=== PATIENT | female | born 1990 | race Caucasian/White ===

== ENCOUNTER → 2018-12-27 | Outpatient (CLI) | payer OTHER ==
--- NOTE | 2018-12-27 10:32 | RADIOLOGY REPORT (SQ) ---
EXAM DESCRIPTION: VENOUS UNILATERAL LOWER COMPLETED DATE/TIME: 12/27/2018 10:19 am REASON FOR STUDY: RLE PAIN M79.606 PAIN IN LEG, UNSPECIFIED COMPARISON: None. TECHNIQUE: Dynamic and static jiang scale and color images acquired of the right leg venous system. S elected spectral images acquired with additional compression and augmentation maneuvers. The contrala teral common femoral vein and saphenofemoral junction were also imaged. Images stored on PACS. LIMITATIONS: None. FINDINGS: COMMON FEMORAL: Normal phasicity, compression and augmentation. No visualized echogenic ma terial on jiang scale. No defects on color images. FEMORAL: Normal compression and augmentation. No visualized echogenic material on jiang scale. No defe cts on color images. POPLITEAL: Normal compression, augmentation. No visualized echogenic material on jiang scale. No defec ts on color images. CALF VESSELS: Normal compression, augmentation. No visualized echogenic material on jiang scale. No de fects on color images. GSV and SSV: Normal compression, augmentation. No visualized echogenic material on jiang scale. No def ects on color images. ANY DEEP VENOUS INSUFFICIENCY: Not evaluated. ANY EVIDENCE OF POPLITEAL CYST: No. OTHER: No other significant finding. CONTRALATERAL COMMON FEMORAL VEIN AND SAPHENOFEMORAL JUNCTION: Normal phasicity, compression and augmentation. No visualized echogenic material on jiang scale. No de fects on color images. IMPRESSION: NO EVIDENCE DVT OR SVT IN THE RIGHT LEG. TECHNICAL DOCUMENTATION: JOB ID: [id number] [employer]- All Rights Reserved Reading location - IP/workstation name: [email or web address]
== END ==
LOC: SP 09:47
PROVIDERS: ATTEND Obstetrics & Gynecology
DX: O99.89 Other specified diseases and conditions complicating pregnancy, childbirth and the puerperium (principal); M79.604 Pain in right leg; Z3A.18 18 weeks gestation of pregnancy
CPT/HCPCS: 93971

== ENCOUNTER 2019-04-06 20:18 | Outpatient (CLI) | payer OTHER ==
[2019-04-06 21:19] LABS: URINE AMPHETAMINES SCREEN NEGATIVE; URINE BARBITURATES SCREEN NEGATIVE; URINE BENZODIAZEPINES SCREEN NEGATIVE; URINE COCAINE SCREEN NEGATIVE; URINE MARIJUANA (THC) SCREEN NEGATIVE; URINE METHADONE SCREEN NEGATIVE; URINE PHENCYCLIDINE SCREEN NEGATIVE
[2019-04-06 21:25] LABS: APPEARANCE,URINE SLIGHTLY-CLOUDY; BILIRUBIN,URINE NEGATIVE (NEGATIVE); COLOR,URINE YELLOW; GLUCOSE, URINE NEGATIVE (NEGATIVE); KETONES,URINE NEGATIVE (NEGATIVE); LEUKOCYTE ESTERASE,URINE SMALL (NEGATIVE); NITRITE,URINE NEGATIVE (NEGATIVE); PROTEIN,URINE NEGATIVE (NEGATIVE); URINE SPECIFIC GRAVITY 1.013; UROBILINOGEN,URINE NEGATIVE mg/dL (<2.0)
--- NOTE | 2019-04-06 22:33 | Non Stress Test Report ---
Non Stress Test Datetime Report Generated by CPN: 04/06/2019 22:33 DEMOGRAPHIC EGA NST: 32.2 INDICATION Indication for Study: Ordered by Provider; Other Indication for Study (NST) Other: LC URINE RESULTS Urine Protein, NST: Negative Urine Ketones - NST: Negative Urine Glucose - NST: Negative Urine Blood - NST: Negative MONITORING Monitor Explained: Monitor Explained; Test Explained; Patient Verbalized Understanding Time on Monitor: 04/06/2019 20:44 Time off Monitor: 04/06/2019 22:04 NST Duration: 80 NST INTERVENTIONS NST Interventions: PO Hydration Physician Notified NST: Dr. Jeronimo BABY A: [id number] BABY A Movement : Present Contraction Frequency : x1 FHR Baseline : 125 Accelerations : 15X15 Decelerations : None Variability : Moderate 6-25bpm NST Review: Meets Criteria for Reactive NST NST Review and Verified By : Cookie Griffith RN Results: Reactive NST REPORT Report Trigger: Send Report
== END 2019-04-06 22:20 | disposition home or self-care (01) ==
LOC: LC 20:18
PROVIDERS: ATTEND Obstetrics & Gynecology Gynecology
PROC: 4A1HXCZ Monitoring of Products of Conception, Cardiac Rate, External Approach (ICD-10-PCS; principal; 2019-04-06)
DX: O47.03 False labor before 37 completed weeks of gestation, third trimester (principal); Z3A.32 32 weeks gestation of pregnancy
CPT/HCPCS: 59025; 80307; 81001

== ENCOUNTER 2019-04-18 07:45 | Inpatient (IN) | payer OTHER ==
[2019-05-22 13:52] LABS: APPEARANCE,URINE CLOUDY; BILIRUBIN,URINE NEGATIVE (NEGATIVE); COLOR,URINE YELLOW; GLUCOSE, URINE 150 mg/dL (NEGATIVE); KETONES,URINE NEGATIVE (NEGATIVE); LEUKOCYTE ESTERASE,URINE LARGE (NEGATIVE); NITRITE,URINE NEGATIVE (NEGATIVE); PROTEIN,URINE NEGATIVE (NEGATIVE); URINE SPECIFIC GRAVITY 1.012; UROBILINOGEN,URINE NEGATIVE mg/dL (<2.0)
[2019-05-22 14:11] LABS: URINE AMPHETAMINES SCREEN NEGATIVE; URINE BARBITURATES SCREEN NEGATIVE; URINE BENZODIAZEPINES SCREEN NEGATIVE; URINE COCAINE SCREEN NEGATIVE; URINE MARIJUANA (THC) SCREEN NEGATIVE; URINE METHADONE SCREEN NEGATIVE; URINE PHENCYCLIDINE SCREEN NEGATIVE
[2019-05-22 14:52] LABS: ABSOLUTE EOSINOPHILS # (AUTO) 0.5 10^3/uL (0.0-0.6); ABSOLUTE LYMPHOCYTES (AUTO) 1.9 10^3/uL (0.5-4.7); ABSOLUTE MONOCYTES (AUTO) 0.6 10^3/uL (0.1-1.4); ABSOLUTE NEUT (AUTO) 8.1 10^3/uL (1.7-8.2); BASOPHILS % (AUTO) 0.2 % (0-2); EOSINOPHILS % (AUTO) 4.4 % (0-6); HEMATOCRIT 31.7 % (36.0-47.0); HEMOGLOBIN 10.8 g/dL (12.0-15.5); LYMPHOCYTES % (AUTO) 16.9 % (13-45); MEAN CORPUSCULAR HEMOGLOBIN 30.1 pg (27.0-33.4); MEAN CORPUSCULAR HGB CONC 34.2 g/dL (32.0-36.0); MEAN CORPUSCULAR VOLUME 88 fl (80-97); MONOCYTES % (AUTO) 5.4 % (3-13); PLATELET COUNT 170 10^3/uL (150-450); RED CELL DISTRIBUTION WIDTH 15.6 % (11.5-14.0); SEGMENTED NEUTROPHILS % (AUTO) 73.1 % (42-78); TOTAL CELLS COUNTED % (AUTO) 100 %
[2019-05-23] MEDS ORDERED: LIDOCAINE 0.5% INJ-PF (5 MG/ML) 50 ML SDV SUBCUT PRN (05:00)
[2019-05-23] MEDS ORDERED: RINGERS SOLUTION,LACTATED 1,500 ML IV PRN (05:00)
[2019-05-23] MEDS ORDERED: CEFAZOLIN 1 GM/D5W RTU 1 GM/50 ML RTUPB IV PRN (05:00)
[2019-05-23] MEDS: LACTATED RINGERS 1000 ML IV PRN ×3 (05:30→17:24)
[2019-05-23] MEDS ORDERED: KETOROLAC TROMETHAMINE INJ/PF 30 MG/1 ML SDV ONE ×2 (07:07→12:50)
[2019-05-23] MEDS ORDERED: EPHEDRINE SULFATE INJ 50 MG/1 ML AMPULE ONE (07:07)
[2019-05-23] MEDS ORDERED: OXYTOCIN 10 UNIT/ML VIAL ONE (07:07)
[2019-05-23] MEDS ORDERED: MIDAZOLAM 2 MG/2 ML INJ ONE (07:07)
[2019-05-23] MEDS ORDERED: FENTANYL CITRATE INJ/PF 100 MCG/2 ML AMPUL ONE (07:07)
[2019-05-23] MEDS ORDERED: ONDANSETRON HCL INJ/PF 4 MG/2 ML SDV ONE ×2 (07:08→10:28)
[2019-05-23] MEDS ORDERED: ACETAMINOPHEN 1,000 MG/100 ML RTUPB IV ONE (07:08)
[2019-05-23] MEDS ORDERED: OXYTOCIN/NORMAL SALINE 20 UNIT/1,000 ML RTUINJ ONE (07:08)
[2019-05-23] MEDS ORDERED: DIPH/PERTUSS(ACELL)/TETANUS VAC/PF 0.5 ML SYR (>=10YO) IM PRN (08:06)
[2019-05-23] MEDS ORDERED: OXYTOCIN/NORMAL SALINE 20 UNIT/1,000 ML RTUINJ IV PRN (08:06)
[2019-05-23] MEDS ORDERED: ACETAMINOPHEN 1,000 MG/100 ML RTUPB IV PRN (08:06)
[2019-05-23] MEDS ORDERED: MEASLES,MUMPS&RUBELLA VACC/PF 0.5 ML VIAL SUBCUT PRN (08:06)
[2019-05-23] MEDS ORDERED: MORPHINE SULFATE 10 MG/ML INJ IM PRN (08:06)
[2019-05-23] MEDS ORDERED: PROMETHAZINE HCL INJ 25 MG/1 ML VIAL IV PRN ×3 (08:06→08:13)
--- NOTE | 2019-05-23 08:09 | PDOC DELIVERY SUMMARY ---
Delivery Summary - Maternal Hx : III Hx # Term Pregnancies: 1 Hx Total # of Abortions (Sponateous & Elective): 1 STEWART: 05/30/19 Gestational Age: 39weeks Risk Factors: Other Ruptured Membranes: AROM Fluids: Clear - Delivery Labor: Not In Labor Presentation: Vertex Heart Rate Monitoring: Done Pre-Operatively Uterine Contraction Monitoring: External : Scheduled Placenta: Within Normal Limits Number of Vessels (Cord): 3
[2019-05-23] MEDS ORDERED: OXYCODONE-ACETAMINOPHEN 5-325 MG TABLET PO PRN ×2 (08:13)
[2019-05-23] MEDS ORDERED: FENTANYL CITRATE INJ/PF 100 MCG/2 ML AMPUL IV PRN ×3 (08:13)
[2019-05-23] MEDS ORDERED: DIPHENHYDRAMINE HCL 50 MG/ML VIAL IV PRN (08:13)
[2019-05-23] MEDS ORDERED: MEPERIDINE HCL/PF INJ 25 MG/1 ML DISP.SYRIN IV PRN (08:13)
[2019-05-23] MEDS ORDERED: ONDANSETRON HCL INJ/PF 4 MG/2 ML SDV IV PRN (08:13)
[2019-05-23] MEDS ORDERED: NALBUPHINE HCL INJ 10 MG/1 ML AMPULE ONE (08:20)
[2019-05-23] MEDS ORDERED: DEXAMETHASONE SOD PHOSPHATE INJ 4 MG/1 ML VIAL ONE (10:28)
[2019-05-23] MEDS ORDERED: METOCLOPRAMIDE HCL INJ/PF 10 MG/2 ML SDV ONE (10:28)
[2019-05-23] MEDS ORDERED: PHENYLEPHRINE HCL INJ/PF 10 MG/1 ML SDV ONE (10:28)
[2019-05-23] MEDS: ACETAMINOPHEN 325 MG TABLET PO PRN ×2 (11:19→17:22)
[2019-05-23] MEDS: PRENATAL VITAMIN W DHA CAPSULE PO SCH (11:20)
[2019-05-23] MEDS: DOCUSATE SODIUM 100 MG CAPSULE PO SCH ×2 (11:20→17:22)
[2019-05-23 12:47] LABS: HEMATOCRIT 28.1 % (36.0-47.0); HEMOGLOBIN 9.6 g/dL (12.0-15.5); MEAN CORPUSCULAR HEMOGLOBIN 29.8 pg (27.0-33.4); MEAN CORPUSCULAR HGB CONC 34.3 g/dL (32.0-36.0); MEAN CORPUSCULAR VOLUME 87 fl (80-97); PLATELET COUNT 141 10^3/uL (150-450); RED BLOOD COUNT 3.23 10^6/uL (3.72-5.28); RED CELL DISTRIBUTION WIDTH 15.2 % (11.5-14.0); WHITE BLOOD COUNT 18.9 10^3/uL (4.0-10.5)
[2019-05-23] MEDS: KETOROLAC TROMETHAMINE INJ/PF 30 MG/1 ML SDV IV SCH ×2 (13:03→19:40)
[2019-05-23] MEDS: OXYCODONE-ACETAMINOPHEN 5-325 MG TABLET PO PRN (22:51)
[2019-05-24] MEDS: OXYCODONE-ACETAMINOPHEN 5-325 MG TABLET PO PRN ×3 (05:22→20:09)
[2019-05-24 07:44] LABS: HEMATOCRIT 23.2 % (36.0-47.0); MEAN CORPUSCULAR HEMOGLOBIN 29.8 pg (27.0-33.4); MEAN CORPUSCULAR HGB CONC 33.6 g/dL (32.0-36.0); MEAN CORPUSCULAR VOLUME 89 fl (80-97); PLATELET COUNT 144 10^3/uL (150-450); RED BLOOD COUNT 2.63 10^6/uL (3.72-5.28); RED CELL DISTRIBUTION WIDTH 15.7 % (11.5-14.0); WHITE BLOOD COUNT 13.4 10^3/uL (4.0-10.5)
[2019-05-24 07:53] LABS: HEMOGLOBIN 7.8 g/dL (12.0-15.5)
[2019-05-24] MEDS: DOCUSATE SODIUM 100 MG CAPSULE PO SCH ×2 (09:57→17:39)
[2019-05-24] MEDS: PRENATAL VITAMIN W DHA CAPSULE PO SCH (09:57)
--- NOTE | 2019-05-24 10:52 | PDOC PROGRESS REPORT ---
Subjective-OB Progress Note for:: 05/24/19 Subjective: Pt doing well, resting. She denies significant pain but is appropriately sore. She reports regular diet, voiding without difficulty and is ambulatory. Physical Exam (OB) Vital Signs: Temp Pulse Resp BP Pulse Ox 98.5 F 93 16 99/52 L 98 05/24/19 07:23 05/24/19 07:23 05/24/19 07:23 05/24/19 07:23 05/24/19 07:23 Intake & Output 05/23/19 05/24/19 05/25/19 06:59 06:59 06:59 Intake Total 2500 1000 Output Total 2700 Balance -200 1000 Weight 69.037 kg - Dressing Removed: Yes Incision: Open, Well Approximated - Lochia Lochia Amount: Scant < 10 ml Lochia Color: Serosa/Brown - Abdomen Description: Soft Hernia Present: No Fundal Description: Firm, Midline Fundal Height: u/u - u/2 Objective-Diagnostic Laboratory: 05/24/19 07:23 05/23/19 05/24/19 12:20 07:23 WBC 18.9 H 13.4 H RBC 3.23 L 2.63 L Hgb 9.6 L 7.8 L Hct 28.1 L 23.2 L MCV 87 89 MCH 29.8 29.8 MCHC 34.3 33.6 RDW 15.2 H 15.7 H Plt Count 141 L 144 L Assessment and Plan(PN) - Assessment and Plan (1) Normal course Is this a current diagnosis for this admission?: Yes (2) Anemia due to acute blood loss Is this a current diagnosis for this admission?: Yes (3) delivery delivered Is this a current diagnosis for this admission?: Yes - Time Spent with Patient Time with patient: Less than 15 minutes Medications reviewed and adjusted accordingly: Yes - Disposition Anticipated Discharge: Home Within: within 24 hours
[2019-05-24] MEDS: IBUPROFEN 800 MG TABLET PO SCH ×2 (11:52→17:34)
[2019-05-24] MEDS: SIMETHICONE 80 MG TAB.CHEW PO PRN ×2 (12:05→17:44)
--- NOTE | 2019-05-24 15:54 | PDOC PROGRESS REPORT ---
Subjective-OB Progress Note for:: 05/24/19 Subjective: Called to evaluate patient for shortness of breath after a near syncopal episode while standing in the nursery. Pt back in bed now and reports feeling like its harder to breath due to tight wheezing feeling in center of chest. She reports new symptom of coughing as of the last hour. She doesn't appear to be in distress. Physical Exam (OB) Vital Signs: Temp Pulse Resp BP Pulse Ox 98.2 F 96 16 101/56 L 98 05/24/19 14:59 05/24/19 14:59 05/24/19 14:59 05/24/19 14:59 05/24/19 14:59 Intake & Output 05/23/19 05/24/19 05/25/19 06:59 06:59 06:59 Intake Total 2500 1000 Output Total 2700 Balance -200 1000 Weight 69.037 kg - PIH/Pre-Eclampsia Headache: Absent Epigastric Pain: No Visual Changes: No - Dressing Removed: Yes Incision: Open, Well Approximated - Abdomen Description: Soft Hernia Present: No Fundal Description: Firm, Midline Fundal Height: u/u - u/2 - Respiratory Chest Status: Other - Needs pain medication to encourage Incentive spirometer use, cough and deep breathing. Breath sounds: Productive cough, Other Chest Palpation: Normal Respiratory Notes: Expiratory wheezes slight and inconsistent in bronchial area, no wheezing auscultated in lung shipley. Decreased breath sounds in LLL, no crackles or rales. - Neurological Orientation: AAOx4 - Skin Skin Temperature: Warm Skin Moisture: Dry Skin Color: Normal, [place] Objective-Diagnostic Laboratory: 05/24/19 07:23 05/24/19 07:23 WBC 13.4 H RBC 2.63 L Hgb 7.8 L Hct 23.2 L MCV 89 MCH 29.8 MCHC 33.6 RDW 15.7 H Plt Count 144 L 05/22/19 12:10 Clean Catch Midstream Urine Culture - Final Mixed Urogenital Azucena Assessment and Plan(PN) - Assessment and Plan (1) Normal course Is this a current diagnosis for this admission?: Yes (2) Anemia due to acute blood loss Is this a current diagnosis for this admission?: Yes (3) delivery delivered Is this a current diagnosis for this admission?: Yes Plan:: Discussed with Dr. Dunn, ordered CXR, EKG, and Moon, hospitalist consult placed. - Time Spent with Patient Medications reviewed and adjusted accordingly: Yes - Disposition Anticipated Discharge: Home Within: within 24 hours
[2019-05-24] MEDS: IPRATROPIUM/ALBUTEROL 0.5-2.5 MG/3 ML AMPUL NEB PRN ×2 (16:08→20:49)
--- NOTE | 2019-05-24 16:18 | RADIOLOGY REPORT (SQ) ---
EXAM DESCRIPTION: CHEST 2 VIEWS COMPLETED DATE/TIME: 05/24/2019 3:57 pm REASON FOR STUDY: shortness of breath COMPARISON: None. EXAM PARAMETERS: NUMBER OF VIEWS: two views TECHNIQUE: Digital Frontal and Lateral radiographic views of the chest acquired. RADIATION DOSE: NA LIMITATIONS: none FINDINGS: There is free intraperitoneal air under the right hemidiaphragm. This report was called sera LARA, 1600 hours 05/24/2019. Patient had a section yesterday. LUNGS AND PLEURA: No opacities, masses or pneumothorax. No pleural effusion. MEDIASTINUM AND HILAR STRUCTURES: No masses or contour abnormalities. HEART AND VASCULAR STRUCTURES: Heart normal size. No evidence for failure. BONES: No acute findings. HARDWARE: None in the chest. OTHER: No other significant finding. IMPRESSION: Post section subdiaphragmatic free air right-side No focal infiltrates. No pleural effusions. No pneumothorax. TECHNICAL DOCUMENTATION: JOB ID: [id number] [employer]- All Rights Reserved Reading location - IP/workstation name: [email or web address]
--- NOTE | 2019-05-24 16:37 | PDOC CONSULTATION ---
Consultation Consult Date: 05/24/19 Provider Consulted: JORJE RG History of Present Illness Admission Date/PCP: 05/23/19 05:02 JOSE HIGH MD Patient complains of: lightheadedness, SOB History of Present Illness: BILLY VILLARREAL is a 29 year old female no significant PMH who was admitted for a repeat CS. She is POD 1. She was apparently doing well until this morning when she started having lightheadedness and SOB. Patient says that she was feeling fine but wnet to the nursery this AM, felt dizzy and gradually short of breath. She denies chest pain. She is saturating at a 100% on room air. She was reported to have bilateral wheezes and was given a breathing treatment. Upon encounter, she has already completed the treatment and has clear breath sounds. She says it did gave her some relief. She denies a history of asthma. She does not smoke. Past Medical History Cardiac Medical History: Denies: Hypertension, Heart Murmur Malignancy Medical History: Denies: Breast Cancer, Cervical Cancer, Ovarian Cancer GI Medical History: Reports: Gastroesophageal Reflux Disease - with Denies: Hiatal Hernia Psychiatric Medical History: Reports: Depression - POST-, ANXIETY, OCD Denies: Bipolar Disorder, Post Traumatic Stress Disorder Hematology: Reports: Anemia - with Denies: Hemophilia, Sickle Cell Disease Infectious Medical History: Denies: HIV Social History Smoking Status: Former Smoker - Advance Directive Resuscitation Status: Full Code Family History Parental Family History Reviewed: Yes - no premature CAD Children Family History Reviewed: No Sibling(s) Family History Reviewed.: No Medication/Allergy Home Medications: Fluoxetine HCl [Prozac 20 mg Capsule] 20 mg PO DAILY 04/06/19 Iron 1 tab PO DAILY 05/21/19 95/Iron Fum/Folic/Dha [ + Dha Combo Pack] 1 each PO DAILY 05/21/19 Ranitidine HCl [Zantac] 1 tab PO DAILY 05/21/19 Ibuprofen [Motrin 800 mg Tablet] 800 mg PO Q8HP PRN #60 tablet 05/24/19 Oxycodone HCl/Acetaminophen [Percocet 5-325 mg Tablet] 1 tab PO Q4HP PRN #30 tablet 05/24/19 Allergies/Adverse Reactions: Sulfa (Sulfonamide Antibiotics) Allergy (Verified 05/22/19 11:57) Review of Systems All systems: reviewed and no additional remarkable complaints except as stated - as mentioned in HPI Physical Exam Vital Signs: Temp Pulse Resp BP Pulse Ox 98.2 F 95 14 101/56 L 98 05/24/19 14:59 05/24/19 16:10 05/24/19 16:10 05/24/19 14:59 05/24/19 16:10 Intake & Output 05/23/19 05/24/19 05/25/19 06:59 06:59 06:59 Intake Total 2500 1000 Output Total 2700 Balance -200 1000 Weight 152 lb 3.2 oz General appearance: PRESENT: no acute distress, well-developed, well-nourished Head exam: PRESENT: atraumatic, normocephalic Eye exam: PRESENT: conjunctiva pink, EOMI, PERRLA. ABSENT: scleral icterus Ear exam: PRESENT: normal external ear exam Mouth exam: PRESENT: moist, tongue midline Neck exam: ABSENT: carotid bruit, JVD, lymphadenopathy, thyromegaly Respiratory exam: PRESENT: clear to auscultation josef. ABSENT: rales, rhonchi, wheezes Cardiovascular exam: PRESENT: RRR. ABSENT: diastolic murmur, rubs, systolic murmur Pulses: PRESENT: normal dorsalis pedis pul GI/Abdominal exam: PRESENT: normal bowel sounds, soft. ABSENT: distended, guarding, mass, organolmegaly, rebound, tenderness Rectal exam: PRESENT: deferred Extremities exam: PRESENT: full ROM. ABSENT: calf tenderness, clubbing, pedal edema Neurological exam: PRESENT: alert, awake, oriented to person, oriented to place, oriented to time, oriented to situation, CN II-XII grossly intact. ABSENT: motor sensory deficit Results Laboratory Results: 05/24/19 07:23 05/24/19 07:23 WBC 13.4 H RBC 2.63 L Hgb 7.8 L Hct 23.2 L MCV 89 MCH 29.8 MCHC 33.6 RDW 15.7 H Plt Count 144 L 05/22/19 12:10 Clean Catch Midstream Urine Culture - Final Mixed Urogenital Azucena Impressions: Chest X-Ray 05/24/19 00:00 IMPRESSION: Post section subdiaphragmatic free air right-side No focal infiltrates. No pleural effusions. No pneumothorax. Assessment and Plan - Diagnosis (1) Shortness of breath Is this a current diagnosis for this admission?: Yes Plan: She is saturating at a 100% on room air. EKG is normal. CXR shows a right sided pneumoperitoneum related to her recent surgery. No pneumonia. She complained of lightheadedness and exertional SOB on ambulation this morning. Likely this is more related to her acute anemia. Recommend repeating CBC and consider transfusing a unit of pRBC if she continues to be symptomatic. (2) Anemia due to acute blood loss Is this a current diagnosis for this admission?: Yes Plan: As per number 1. (3) delivery delivered Is this a current diagnosis for this admission?: Yes Plan: Per primary service. - Time Time Spent with patient: 15-24 minutes
[2019-05-24] MEDS: FERROUS SULFATE 325 MG TABLET PO SCH (17:39)
[2019-05-24] MEDS: ASCORBIC ACID 500 MG TABLET PO SCH (17:39)
--- NOTE | 2019-05-25 00:10 | EKG REPORT ---
SEVERITY:- NORMAL ECG - SINUS RHYTHM : Confirmed by: Katrin Galdamez MD 25-May-2019 00:09:20
[2019-05-25] MEDS: OXYCODONE-ACETAMINOPHEN 5-325 MG TABLET PO PRN ×4 (00:18→20:07)
[2019-05-25] MEDS: IBUPROFEN 800 MG TABLET PO SCH ×5 (00:19→23:12)
[2019-05-25] MEDS: IPRATROPIUM/ALBUTEROL 0.5-2.5 MG/3 ML AMPUL NEB PRN ×2 (04:59→09:46)
[2019-05-25 07:20] LABS: HEMATOCRIT 22.7 % (36.0-47.0); MEAN CORPUSCULAR HEMOGLOBIN 29.9 pg (27.0-33.4); MEAN CORPUSCULAR HGB CONC 33.7 g/dL (32.0-36.0); MEAN CORPUSCULAR VOLUME 89 fl (80-97); PLATELET COUNT 137 10^3/uL (150-450); RED BLOOD COUNT 2.56 10^6/uL (3.72-5.28); WHITE BLOOD COUNT 9.6 10^3/uL (4.0-10.5)
[2019-05-25 07:26] LABS: HEMOGLOBIN 7.7 g/dL (12.0-15.5)
[2019-05-25] MEDS: PRENATAL VITAMIN W DHA CAPSULE PO SCH (09:38)
[2019-05-25] MEDS: FERROUS SULFATE 325 MG TABLET PO SCH ×3 (09:38→17:53)
[2019-05-25] MEDS: DOCUSATE SODIUM 100 MG CAPSULE PO SCH ×2 (09:38→17:53)
[2019-05-25] MEDS: ASCORBIC ACID 500 MG TABLET PO SCH ×2 (09:38→17:53)
--- NOTE | 2019-05-25 09:57 | PDOC PROGRESS REPORT ---
Subjective-OB Progress Note for:: 05/25/19 Subjective: Pt doing well, she is concerned about going home today because of the cough. Says she feels that she needs to keep doing the breathing treatments. She reports light bleeding, regular diet and is voiding without difficulty. Physical Exam (OB) Vital Signs: Temp Pulse Resp BP Pulse Ox 98.2 F 112 H 16 112/54 L 100 05/25/19 04:51 05/25/19 09:46 05/25/19 09:46 05/25/19 05:07 05/25/19 09:46 Intake & Output 05/24/19 05/25/19 05/26/19 06:59 06:59 06:59 Intake Total 2500 1000 Output Total 2700 Balance -200 1000 - General General Appearance: Appears well - PIH/Pre-Eclampsia Headache: Absent Epigastric Pain: No Visual Changes: No - Dressing Removed: Yes Incision: Open, Well Approximated - Lochia Lochia Amount: Scant < 10 ml Lochia Color: Serosa/Brown - Abdomen Description: Soft Hernia Present: No Fundal Description: Firm, Midline Fundal Height: u/u - u/2 - Respiratory Respiratory Status: No respiratory distress Breath sounds: Clear Objective-Diagnostic Laboratory: 05/25/19 06:36 05/25/19 06:36 WBC 9.6 RBC 2.56 L Hgb 7.7 L Hct 22.7 L MCV 89 MCH 29.9 MCHC 33.7 RDW 16.0 H Plt Count 137 L 05/22/19 12:10 Clean Catch Midstream Urine Culture - Final Mixed Urogenital Azucena Assessment and Plan(PN) - Assessment and Plan (1) Normal course Is this a current diagnosis for this admission?: Yes (2) Anemia due to acute blood loss Is this a current diagnosis for this admission?: Yes (3) delivery delivered Is this a current diagnosis for this admission?: Yes - Time Spent with Patient Time with patient: Less than 15 minutes Medications reviewed and adjusted accordingly: Yes - Disposition Anticipated Discharge: Home Within: within 24 hours
--- NOTE | 2019-05-25 11:52 | PDOC PROGRESS REPORT ---
Subjective Progress Note for:: 05/25/19 Subjective:: BILLY VILLARREAL is a 29 year old female no significant PMH who was admitted for a repeat CS. She is POD 1. Hospitalist service was consulted as she had some light headedness and exertional SOB when she ambulated yesterday. No acute event overnight. Upon encounter, she says she feels better today but she still has minimally productive cough. She says she is able to ambulate better and exertional SOB has significantly improved. Denies chest pain. No fever chills. No leukocytosis. Chest x-ray does not show any infiltrates or pneumonia. Reason For Visit: Z34.83 ENCOUNTER FOR SUPRVSN OF NORMAL , Physical Exam Vital Signs: Temp Pulse Resp BP Pulse Ox 98.2 F 112 H 16 112/54 L 100 05/25/19 04:51 05/25/19 09:46 05/25/19 09:46 05/25/19 05:07 05/25/19 09:46 Intake & Output 05/24/19 05/25/19 05/26/19 06:59 06:59 06:59 Intake Total 2500 1000 Output Total 2700 Balance -200 1000 General appearance: PRESENT: no acute distress, well-developed, well-nourished Head exam: PRESENT: atraumatic, normocephalic Eye exam: PRESENT: conjunctiva pink, EOMI, PERRLA. ABSENT: scleral icterus Ear exam: PRESENT: normal external ear exam Mouth exam: PRESENT: moist, tongue midline Neck exam: ABSENT: carotid bruit, JVD, lymphadenopathy, thyromegaly Respiratory exam: PRESENT: clear to auscultation josef. ABSENT: rales, rhonchi, wheezes Cardiovascular exam: PRESENT: RRR. ABSENT: diastolic murmur, rubs, systolic murmur Pulses: PRESENT: normal dorsalis pedis pul GI/Abdominal exam: PRESENT: normal bowel sounds, soft. ABSENT: distended, guarding, mass, organolmegaly, rebound, tenderness Rectal exam: PRESENT: deferred Extremities exam: PRESENT: full ROM. ABSENT: calf tenderness, clubbing, pedal edema Neurological exam: PRESENT: alert, awake, oriented to person, oriented to place, oriented to time, oriented to situation, CN II-XII grossly intact. ABSENT: motor sensory deficit Psychiatric exam: PRESENT: appropriate affect, normal mood. ABSENT: homicidal ideation, suicidal ideation Skin exam: PRESENT: dry, intact, warm. ABSENT: cyanosis, rash Results Laboratory Results: 05/25/19 06:36 05/25/19 06:36 WBC 9.6 RBC 2.56 L Hgb 7.7 L Hct 22.7 L MCV 89 MCH 29.9 MCHC 33.7 RDW 16.0 H Plt Count 137 L 05/22/19 12:10 Clean Catch Midstream Urine Culture - Final Mixed Urogenital Azucena Impressions: Chest X-Ray 05/24/19 00:00 IMPRESSION: Post section subdiaphragmatic free air right-side No focal infiltrates. No pleural effusions. No pneumothorax. Assessment and Plan - Diagnosis (1) Shortness of breath Is this a current diagnosis for this admission?: Yes Plan: Improved. Discussed with primary service. Recommend considering transfusing 1 unit of packed RBC if the patient continues to be symptomatic from her acute blood loss anemia. Will be signing off in the next 24 hours if there is no acute issues. (2) Anemia due to acute blood loss Is this a current diagnosis for this admission?: Yes Plan: Hb stable from yesterday. (3) delivery delivered Is this a current diagnosis for this admission?: Yes Plan: Per primary service. - Time Time Spent with patient: 15-24 minutes
[2019-05-26] MEDS: OXYCODONE-ACETAMINOPHEN 5-325 MG TABLET PO PRN ×4 (01:08→17:04)
[2019-05-26] MEDS: IBUPROFEN 800 MG TABLET PO SCH ×2 (05:01→12:12)
[2019-05-26 05:50] LABS: ABSOLUTE RETICS # 0.103 10^6/uL (0.028-0.122); RETICULOCYTE COUNT (AUTO) 3.81 % (0.66-2.85)
[2019-05-26 06:08] LABS: IRON(TIBC) 25.5 ug/dL (37-170)
[2019-05-26] MEDS: DOCUSATE SODIUM 100 MG CAPSULE PO SCH ×2 (10:12→17:04)
[2019-05-26] MEDS: ASCORBIC ACID 500 MG TABLET PO SCH ×2 (10:12→17:03)
[2019-05-26] MEDS: PRENATAL VITAMIN W DHA CAPSULE PO SCH (10:12)
[2019-05-26] MEDS: FERROUS SULFATE 325 MG TABLET PO SCH ×3 (10:12→17:03)
[2019-05-26] MEDS ORDERED: NORMAL SALINE 250 ML IV PRN (10:25)
--- NOTE | 2019-05-26 10:28 | PDOC PROGRESS REPORT ---
Subjective-OB Progress Note for:: 05/26/19 Subjective: Pt ready to go home today, feeling like the cough is better. She does c/o feeling light headed when she gets up and decided that she would feel better if she took the unit of blood we offered. She reports light bleeding, reg diet and + flatus. Physical Exam (OB) Vital Signs: Temp Pulse Resp BP Pulse Ox 98 F 93 16 109/68 98 05/26/19 07:00 05/26/19 07:00 05/26/19 07:00 05/26/19 07:00 05/26/19 07:00 Intake & Output 05/25/19 05/26/19 05/27/19 06:59 06:59 06:59 Intake Total 1000 3500 Balance 1000 3500 - PIH/Pre-Eclampsia Headache: Absent Epigastric Pain: No Visual Changes: No - Dressing Removed: Yes Incision: Well Approximated Closure Type: Surgical Glue - Lochia Lochia Amount: Scant < 10 ml Lochia Color: Serosa/Brown - Abdomen Description: Soft Hernia Present: No Fundal Description: Firm, Midline Fundal Height: u/u - u/2 Objective-Diagnostic Laboratory: 05/25/19 06:36 05/26/19 05/26/19 05:39 05:39 Retic Count (auto) 3.81 H Absolute Retic 0.103 Iron 25.5 L TIBC 317 % Saturation 8 Ferritin 17.90 Vitamin B12 431.0 Folate 10.70 Assessment and Plan(PN) - Assessment and Plan (1) Normal course Is this a current diagnosis for this admission?: Yes (2) Anemia due to acute blood loss Is this a current diagnosis for this admission?: Yes (3) delivery delivered Is this a current diagnosis for this admission?: Yes - Time Spent with Patient Time with patient: Less than 15 minutes Medications reviewed and adjusted accordingly: Yes - Disposition Anticipated Discharge: Home Within: within 24 hours
--- NOTE | 2019-05-26 10:30 | PDOC DISCHARGE SUMMARY ---
Final Diagnosis Discharge Date: 05/26/19 - Final Diagnosis (1) Normal course Is this a current diagnosis for this admission?: Yes (2) Anemia due to acute blood loss Is this a current diagnosis for this admission?: Yes (3) delivery delivered Is this a current diagnosis for this admission?: Yes Discharge Data - Discharge Medication Prescriptions: Oxycodone HCl/Acetaminophen [Percocet 5-325 mg Tablet] 1 tab PO Q4HP PRN #30 tablet PRN Reason: Ibuprofen [Motrin 800 mg Tablet] 800 mg PO Q8HP PRN #60 tablet PRN Reason: Home Medications: Fluoxetine HCl [Prozac 20 mg Capsule] 20 mg PO DAILY 04/06/19 95/Iron Fum/Folic/Dha [ + Dha Combo Pack] 1 each PO DAILY 05/21/19 Ibuprofen [Motrin 800 mg Tablet] 800 mg PO Q8HP PRN #60 tablet 05/24/19 Oxycodone HCl/Acetaminophen [Percocet 5-325 mg Tablet] 1 tab PO Q4HP PRN #30 tablet 05/24/19 Ferrous Sulfate [Feosol 325 mg Tablet] 325 mg PO DAILY 05/25/19 Ranitidine HCl [Heartburn Relief 150] 150 mg PO DAILY 05/25/19 Reason(s) for Admission: Ceasarean Section-Primary Intrapartum Procedure(s): : Low Cervical, Transverse - Diagnosis Test Laboratory: Temp Pulse Resp BP Pulse Ox 98 F 93 16 109/68 98 05/26/19 07:00 05/26/19 07:00 05/26/19 07:00 05/26/19 07:00 05/26/19 07:00 05/22/19 05/22/19 05/23/19 12:10 12:19 12:20 RBC 3.60 L 3.23 L Hgb 10.8 L 9.6 L Hct 31.7 L 28.1 L Urine Opiates Screen NEGATIVE 05/24/19 05/25/19 07:23 06:36 RBC 2.63 L 2.56 L Hgb 7.8 L 7.7 L Hct 23.2 L 22.7 L Urine Opiates Screen - Discharge information/Instructions Discharge Activity: Activity As Tolerated, Balance Activity w/Rest, No Lifting Over 10 Pounds, No Lifting/Push/Pulling, Pelvic Rest, No tub bath Discharge Diet: Regular Disposition: HOME, SELF-CARE Follow up with: [facility] in: 3, Days
--- NOTE | 2019-05-26 11:26 | PDOC PROGRESS REPORT ---
Subjective Progress Note for:: 05/26/19 Subjective:: BILLY VILLARREAL is a 29 year old female no significant PMH who was admitted for a repeat CS. She is POD 1. Hospitalist service was consulted as she had some light headedness and exertional SOB when she ambulated yesterday. 05/25: Upon encounter, she says she feels better today but she still has minimally productive cough. She says she is able to ambulate better and exertional SOB has significantly improved. Denies chest pain. No fever chills. No leukocytosis. Chest x-ray does not show any infiltrates or pneumonia. 05/26: No acute event overnight. She says she had very slight exertional dyspnea but feels much better today. Denies any other complaints. She says her cough is almost resolved. Discussed with DEVULCANIZER CHARGER and who has decided to transfuse her 1 unit of packed RBC. She will be discharged after the transfusion. Hospitalist service will be signing off. Thank you for this consult. Reason For Visit: Z34.83 ENCOUNTER FOR SUPRVSN OF NORMAL , Physical Exam Vital Signs: Temp Pulse Resp BP Pulse Ox 98 F 93 16 109/68 98 05/26/19 07:00 05/26/19 07:00 05/26/19 07:00 05/26/19 07:00 05/26/19 07:00 Intake & Output 05/25/19 05/26/19 05/27/19 06:59 06:59 06:59 Intake Total 1000 3500 Balance 1000 3500 General appearance: PRESENT: no acute distress, well-developed, well-nourished Head exam: PRESENT: atraumatic, normocephalic Eye exam: PRESENT: conjunctiva pink, EOMI, PERRLA. ABSENT: scleral icterus Ear exam: PRESENT: normal external ear exam Mouth exam: PRESENT: moist, tongue midline Neck exam: ABSENT: carotid bruit, JVD, lymphadenopathy, thyromegaly Respiratory exam: PRESENT: clear to auscultation josef. ABSENT: rales, rhonchi, wheezes Cardiovascular exam: PRESENT: RRR. ABSENT: diastolic murmur, rubs, systolic murmur Pulses: PRESENT: normal dorsalis pedis pul GI/Abdominal exam: PRESENT: normal bowel sounds, soft. ABSENT: distended, guarding, mass, organolmegaly, rebound, tenderness Rectal exam: PRESENT: deferred Extremities exam: PRESENT: full ROM. ABSENT: calf tenderness, clubbing, pedal edema Neurological exam: PRESENT: alert, awake, oriented to person, oriented to place, oriented to time, oriented to situation, CN II-XII grossly intact. ABSENT: motor sensory deficit Results Laboratory Results: 05/25/19 06:36 05/26/19 05/26/19 05:39 05:39 Retic Count (auto) 3.81 H Absolute Retic 0.103 Iron 25.5 L TIBC 317 % Saturation 8 Ferritin 17.90 Vitamin B12 431.0 Folate 10.70 Impressions: Chest X-Ray 05/24/19 00:00 IMPRESSION: Post section subdiaphragmatic free air right-side No focal infiltrates. No pleural effusions. No pneumothorax. Assessment and Plan - Diagnosis (1) Anemia due to acute blood loss Is this a current diagnosis for this admission?: Yes Plan: 05/26: Discussed with DEVULCANIZER CHARGER and who has decided to transfuse her 1 unit of packed RBC. She will be discharged after the transfusion. Hospitalist service will be signing off. (2) Shortness of breath Is this a current diagnosis for this admission?: Yes Plan: 05/25: Improved. Discussed with primary service. Recommend considering transfusing 1 unit of packed RBC if the patient continues to be symptomatic from her acute blood loss anemia. (3) delivery delivered Is this a current diagnosis for this admission?: Yes Plan: Per primary service. - Time Time Spent with patient: 15-24 minutes
[2019-05-26 11:59] LABS: HEMATOCRIT 24.2 % (36.0-47.0); HEMOGLOBIN 8.1 g/dL (12.0-15.5); MEAN CORPUSCULAR HEMOGLOBIN 30.1 pg (27.0-33.4); MEAN CORPUSCULAR HGB CONC 33.4 g/dL (32.0-36.0); MEAN CORPUSCULAR VOLUME 90 fl (80-97); PLATELET COUNT 169 10^3/uL (150-450); RED BLOOD COUNT 2.68 10^6/uL (3.72-5.28); RED CELL DISTRIBUTION WIDTH 15.9 % (11.5-14.0); WHITE BLOOD COUNT 8.6 10^3/uL (4.0-10.5)
[2019-05-26 13:20] VITALS: BP 106/92
--- NOTE | 2019-07-03 10:36 | Operative Report ---
Operative Report DATE OF SURGERY: 05/23/19 PREOPERATIVE DIAGNOSIS: The term with history of prior shoulder dystocia POSTOPERATIVE DIAGNOSIS: Same OPERATION: Primary low transverse SURGEON: JOSE HIGH ANESTHESIA: Spinal TISSUE REMOVED OR ALTERED: Placenta ESTIMATED BLOOD LOSS: 800 cc PROCEDURE: The patient was taken to the operating room where spinal anesthesia was obtained and found to be adequate. She was then prepped and draped in the normal sterile fashion and placed in the dorsal supine position with a leftward tilt. A Pfannenstiel skin incision was then made and carried through to the underlying layers of the fascia with the scalpel. The fascia was incised in the midline and the incision extended laterally with the Ayala scissors. The superior aspect of the fascial incision was then grasped with [place] clamps elevated and the underlying rectus muscles dissected off bluntly. Attention was then turned to the inferior aspect of the fascial incision which in a similar fashion was grasped, tented up with Kaz clamps, and the rectus muscles dissected off bluntly. The rectus muscles were then in the midline and the peritoneum at the amount identified and entered bluntly. The peritoneal incision was then extended superiorly and inferiorly with good visualization of the bladder. [The bladder blade was inserted and the vesicouterine peritoneum identified grasped with Turkish pickups and entered sharply with the Metzenbaum scissors. His incision was then extended laterally with the Metzenbaum scissors and a bladder flap created digitally. The bladder blade was then reinserted and the lower uterine segment incised in a transverse fashion with the scalpel. The uterine incision was then extended bluntly. The bladder blade was removed and the 's head was delivered from cephalic presentation atraumatically. The nose and mouth were suctioned and the cord doubly clamped and cut. And the infant was handed off to waiting pediatricians. The placenta was then delivered manully and the uterus exteriorized and cleared of all clots and debris. The uterine incision was then repaired with 1-0 Vicryl in a running locked fashion. A second layer of the same suture was used to obtain hemostasis via imbrication of the initial layer. The uterus was returned to the patient's abdomen. The gutters were cleared of all clots and debris. All operative sites were noted to be hemostatic. The fascia was reapproximated with 0 Vicryl in a running fashion from each lateral edge to the midline. The patient tolerated the procedure well. Sponge lap needle and instrument counts are correct -2. 2 g of Ancef were given prior to skin incision. The patient was taken to the recovery area awake and in stable condition.
== END 2019-05-26 18:24 | disposition home or self-care (01) | DRG 787 ==
LOC: 2S 05-23 05:02
PROVIDERS: ADMIT Obstetrics & Gynecology Gynecology; ATTEND Obstetrics & Gynecology Gynecology
PROC: 10D00Z1 Extraction of Products of Conception, Low, Open Approach (ICD-10-PCS; principal; 2019-05-23 07:15)
PROC: 30233N1 Transfusion of Nonautologous Red Blood Cells into Peripheral Vein, Percutaneous Approach (ICD-10-PCS; 2019-05-26)
DX: O82 Encounter for cesarean delivery without indication (principal); D62 Acute posthemorrhagic anemia; O99.344 Other mental disorders complicating childbirth; O99.02 Anemia complicating childbirth; F41.9 Anxiety disorder, unspecified; Z87.59 Personal history of other complications of pregnancy, childbirth and the puerperium; Z37.0 Single live birth; Z87.891 Personal history of nicotine dependence; Z88.2 Allergy status to sulfonamides; Z3A.39 39 weeks gestation of pregnancy
CPT/HCPCS: 1961; 36415; 36430; 59025; 71046; 80307; 81001; 82607; 82728; 82746; 83540; 83550; 85025; 85027; 85045; 86850; 86900; 86901; 86920; 87086; 93005; 93010; 94640; 94799; J0131; J0690; J1100; J1885; J2250; J2300; J2370; J2405; J2590; J2765; J3010; J3490; J7120; J7620; P9016

== ENCOUNTER 2019-04-20 19:32 | Outpatient (CLI) | payer OTHER ==
[2019-04-20 20:04] LABS: APPEARANCE,URINE SLIGHTLY-CLOUDY; BILIRUBIN,URINE NEGATIVE (NEGATIVE); COLOR,URINE YELLOW; GLUCOSE, URINE NEGATIVE (NEGATIVE); KETONES,URINE NEGATIVE (NEGATIVE); LEUKOCYTE ESTERASE,URINE TRACE (NEGATIVE); NITRITE,URINE NEGATIVE (NEGATIVE); PROTEIN,URINE NEGATIVE (NEGATIVE); UROBILINOGEN,URINE NEGATIVE mg/dL (<2.0)
[2019-04-20 20:19] LABS: URINE AMPHETAMINES SCREEN NEGATIVE; URINE BARBITURATES SCREEN NEGATIVE; URINE BENZODIAZEPINES SCREEN NEGATIVE; URINE COCAINE SCREEN NEGATIVE; URINE MARIJUANA (THC) SCREEN NEGATIVE; URINE METHADONE SCREEN NEGATIVE; URINE PHENCYCLIDINE SCREEN NEGATIVE
== END 2019-04-20 20:50 | disposition home or self-care (01) ==
LOC: LC 19:32
PROVIDERS: ATTEND Obstetrics & Gynecology
PROC: 4A1HXCZ Monitoring of Products of Conception, Cardiac Rate, External Approach (ICD-10-PCS; principal; 2019-04-20)
DX: O47.03 False labor before 37 completed weeks of gestation, third trimester (principal); O26.893 Other specified pregnancy related conditions, third trimester; R10.2 Pelvic and perineal pain; M54.9 Dorsalgia, unspecified; R06.02 Shortness of breath; Z3A.34 34 weeks gestation of pregnancy
CPT/HCPCS: 59025; 80307; 81001

== ENCOUNTER 2019-05-06 15:19 | Outpatient (CLI) | payer OTHER ==
[2019-05-06 15:54] LABS: BACTERIA (WET MOUNT) 4+ BACTERIA SEEN; EPITHELIALS (WET MOUNT) 4+ EPITHELIALS SEEN; T.VAGINALIS (WET MOUNT) NO TRICHOMONAS SEEN; WBCS (WET MOUNT) 1+ WBCS SEEN; YEAST (WET MOUNT) YEAST SEEN
[2019-05-06] MEDS ORDERED: ACETAMINOPHEN 325 MG TABLET PO ONE (15:55)
[2019-05-06] MEDS ORDERED: ACETAMINOPHEN 325 MG TABLET ONE (15:56)
[2019-05-06] MEDS ORDERED: ONDANSETRON 4 MG TAB.RAPDIS ONE (16:02)
[2019-05-06] MEDS ORDERED: ONDANSETRON ODT 4 MG TAB (6 TAB/ER DISP) PO PRN (16:04)
[2019-05-06 16:08] LABS: APPEARANCE,URINE SLIGHTLY-CLOUDY; BILIRUBIN,URINE NEGATIVE (NEGATIVE); COLOR,URINE YELLOW; GLUCOSE, URINE NEGATIVE (NEGATIVE); KETONES,URINE NEGATIVE (NEGATIVE); LEUKOCYTE ESTERASE,URINE SMALL (NEGATIVE); NITRITE,URINE NEGATIVE (NEGATIVE); PROTEIN,URINE NEGATIVE (NEGATIVE); URINE SPECIFIC GRAVITY 1.008; UROBILINOGEN,URINE NEGATIVE mg/dL (<2.0)
[2019-05-06 16:13] LABS: UR PRO/CREAT RATIO RESULT 0.3 mg/mg (0.0-0.2); URINE AMPHETAMINES SCREEN NEGATIVE; URINE BARBITURATES SCREEN NEGATIVE; URINE BENZODIAZEPINES SCREEN NEGATIVE; URINE COCAINE SCREEN NEGATIVE; URINE CREATININE 46.9 mg/dL (16-327); URINE MARIJUANA (THC) SCREEN NEGATIVE; URINE METHADONE SCREEN NEGATIVE; URINE PHENCYCLIDINE SCREEN NEGATIVE; URINE PROTEIN 16.2 mg/dL (<12)
[2019-05-06 16:35] LABS: ABSOLUTE EOSINOPHILS # (AUTO) 0.5 10^3/uL (0.0-0.6); ABSOLUTE LYMPHOCYTES (AUTO) 2.5 10^3/uL (0.5-4.7); ABSOLUTE MONOCYTES (AUTO) 0.7 10^3/uL (0.1-1.4); ABSOLUTE NEUT (AUTO) 10.8 10^3/uL (1.7-8.2); BASOPHILS % (AUTO) 0.3 % (0-2); EOSINOPHILS % (AUTO) 3.5 % (0-6); HEMATOCRIT 29.4 % (36.0-47.0); LYMPHOCYTES % (AUTO) 17.3 % (13-45); MEAN CORPUSCULAR HEMOGLOBIN 29.3 pg (27.0-33.4); MEAN CORPUSCULAR HGB CONC 34.2 g/dL (32.0-36.0); MEAN CORPUSCULAR VOLUME 86 fl (80-97); MONOCYTES % (AUTO) 4.7 % (3-13); PLATELET COUNT 206 10^3/uL (150-450); RED BLOOD COUNT 3.43 10^6/uL (3.72-5.28); RED CELL DISTRIBUTION WIDTH 12.9 % (11.5-14.0); SEGMENTED NEUTROPHILS % (AUTO) 74.2 % (42-78); TOTAL CELLS COUNTED % (AUTO) 100 %; WHITE BLOOD COUNT 14.6 10^3/uL (4.0-10.5)
[2019-05-06 17:05] LABS: ALANINE AMINOTRANSFERASE 12 U/L (9-52); ALBUMIN 3.5 g/dL (3.5-5.0); ALKALINE PHOSPHATASE 128 U/L (38-126); ANION GAP 10 (5-19); ASPARTATE AMINO TRANSFERASE 19 U/L (14-36); BILIRUBIN,DIRECT 0.2 mg/dL (0.0-0.4); BILIRUBIN,TOTAL 0.8 mg/dL (0.2-1.3); BLOOD UREA NITROGEN 4 mg/dL (7-20); CARBON DIOXIDE 21 mmol/L (22-30); CHLORIDE 105 mmol/L (98-107); GLUCOSE 93 mg/dL (75-110); SODIUM 135.9 mmol/L (137-145); TOTAL PROTEIN 6.3 g/dL (6.3-8.2); URIC ACID 2.8 mg/dL (2.5-6.2)
--- NOTE | 2019-05-06 17:05 | Non Stress Test Report ---
Non Stress Test Datetime Report Generated by CPN: 05/06/2019 17:05 DEMOGRAPHIC EGA NST: 36.4 EGA NST: 34.2 INDICATION Indication for Study: Ordered by Provider; Other Indication for Study: Ordered by Provider Indication for Study (NST) Other: PRE-E W/U VITAL SIGNS Temperature - NST: 98.8 Pulse - NST: 92 RESP - NST: 16 NBPSYS NST: 116 NBPDIA NST: 69 URINE RESULTS Urine Protein, NST: Negative Urine Ketones - NST: Negative Urine Glucose - NST: Negative Urine Blood - NST: Negative MONITORING Monitor Explained: Monitor Explained; Test Explained; Patient Verbalized Understanding Monitor Explained: Monitor Explained; Test Explained; Patient Verbalized Understanding Time on Monitor: 05/06/2019 15:40 Time on Monitor: 04/20/2019 19:54 Time off Monitor: 05/06/2019 16:46 Time off Monitor: 04/20/2019 20:30 NST Duration: 66 NST Duration: 36 NST INTERVENTIONS NST Interventions: PO Hydration; Reposition Patient NST Interventions: PO Hydration Physician Notified NST: C. Na CNM BABY A: [id number] BABY A Movement : Present Movement : Present Contraction Frequency : IRREG Contraction Frequency : uterine irritability FHR Baseline : 125 FHR Baseline : 140 Accelerations : 15X15 Accelerations : 15X15 Decelerations : None Decelerations : None Variability : Moderate 6-25bpm Variability : Moderate 6-25bpm NST Review: Meets Criteria for Reactive NST NST Review: Meets Criteria for Reactive NST NST Review and Verified By : Raina Wilks RN NST Review and Verified By : Debbi Salgado RN NST Results: Reactive NST Results: Reactive NST COMMENTS NST Comments: CNM on unit reviewing FHT strip NST REPORT Report Trigger: Send Report
== END 2019-05-06 17:00 | disposition home or self-care (01) ==
LOC: LC 15:19
PROVIDERS: ATTEND Advanced Practice Midwife
PROC: 4A1HXCZ Monitoring of Products of Conception, Cardiac Rate, External Approach (ICD-10-PCS; principal; 2019-05-06)
DX: Z36.89 Encounter for other specified antenatal screening (principal)
CPT/HCPCS: 59025; 36415; 87210; 83615; 84156; 84550; 82570; 85025; 80053; 81001; 80307; 84112; S0119

== ENCOUNTER 2019-05-30 08:25 | Outpatient (CLI) | payer OTHER ==
[2019-05-30] MEDS ORDERED: FERRIC CARBOXYMALTOSE 750 MG in NORMAL SALINE 250 ML IV PRN (08:30)
[2019-05-30] MEDS ORDERED: NORMAL SALINE 250 ML IV PRN (08:30)
[2019-05-30 08:46] VITALS: BP 111/64
== END 2019-05-30 10:13 | disposition home or self-care (01) ==
LOC: II 08:25 → 5TH 08:26 → II 10:13
PROVIDERS: ATTEND Obstetrics & Gynecology Gynecology
PROC: 3E033GC Introduction of Other Therapeutic Substance into Peripheral Vein, Percutaneous Approach (ICD-10-PCS; principal; 2019-05-30)
DX: O99.019 Anemia complicating pregnancy, unspecified trimester (principal); Z98.890 Other specified postprocedural states
CPT/HCPCS: 96366; J7050; J1439; 96365

== ENCOUNTER 2019-06-06 08:29 | Outpatient (CLI) | payer OTHER ==
[~2019-06-06 08:29] MED LIST: FERRIC CARBOXYMALTOSE 750 MG in NORMAL SALINE 250 ML IV PRN; NORMAL SALINE 250 ML IV PRN
[2019-06-06 08:45] VITALS: BP 102/54
== END 2019-06-06 10:02 | disposition home or self-care (01) ==
LOC: II 08:29 → 5TH 08:30 → II 10:02
PROVIDERS: ATTEND Obstetrics & Gynecology Gynecology
PROC: 3E033GC Introduction of Other Therapeutic Substance into Peripheral Vein, Percutaneous Approach (ICD-10-PCS; principal; 2019-06-06)
DX: O99.019 Anemia complicating pregnancy, unspecified trimester (principal); Z98.890 Other specified postprocedural states
CPT/HCPCS: 96365; J7050; J1439; 96366

== ENCOUNTER 2019-07-15 21:20 | Emergency (ER) | payer OTHER ==
[2019-07-15] MEDS ORDERED: METOCLOPRAMIDE HCL INJ/PF 10 MG/2 ML SDV IV ONE (22:31)
--- NOTE | 2019-07-15 22:33 | ER Document Report ---
ED Medical Screen (RME) - General Chief Complaint: Abdominal Pain Stated Complaint: ABDOMINAL PAIN Time Seen by Provider: 07/15/19 22:29 Primary Care Provider: JOSE HIGH MD [Primary Care Provider] - Follow up as needed Notes: Patient is a 29-year-old female currently 7 weeks post section presents to the emergency department for upper abdominal pain. States she has generalized right, left, and epigastric upper abdominal pain. Patient is also complaining of generalized nausea. States patient did receive blood transfusion and iron transfusions secondary due to blood loss from her section. Patient voices that her had similar nausea and abdominal pain symptoms a few days ago. States she thought this was viral in nature but her pain and nausea has persisted which is why she presents to the emergency room. Patient's denying any dysuria or vaginal discharge. GENERAL: Alert, interacts well. No acute distress. ABDOMEN: Soft, generalized tenderness right upper quadrant, epigastric, left upper quadrant. Non-distended. Bowel sounds present in all 4 quadrants. I have greeted and performed a rapid initial assessment of this patient. A comprehensive ED assessment and evaluation of the patient, analysis of test results and completion of the medical decision making process will be conducted by additional ED providers. I have specifically instructed the patient or family members with the patient to immediately return to any nursing staff should anything change in the patient's condition or with their chief complaint. This medical record was dictated with voice recognizing software. There may be grammatical, syntax errors that are unintended. TRAVEL OUTSIDE OF THE [place] IN LAST 30 DAYS: No - Related Data Allergies/Adverse Reactions: Sulfa (Sulfonamide Antibiotics) Allergy (Verified 05/22/19 11:57) Past Medical History GI Medical History: Reports: Hx Gastroesophageal Reflux Disease - with Physical Exam - Vital signs Vitals: Temp Pulse Resp BP Pulse Ox 97.5 F 64 18 110/65 97 07/15/19 21:38 07/15/19 21:38 07/15/19 21:38 07/15/19 21:38 07/15/19 21:38 Course - Vital Signs Vital signs: Temp Pulse Resp BP Pulse Ox 97.5 F 64 18 110/65 97 07/15/19 21:38 07/15/19 21:38 07/15/19 21:38 07/15/19 21:38 07/15/19 21:38 Doctor's Discharge - Discharge Referrals: JOSE HIGH MD [Primary Care Provider] - Follow up as needed
[2019-07-15 22:57] LABS: APPEARANCE,URINE CLEAR; BILIRUBIN,URINE NEGATIVE (NEGATIVE); COLOR,URINE STRAW; GLUCOSE, URINE NEGATIVE (NEGATIVE); KETONES,URINE NEGATIVE (NEGATIVE); LEUKOCYTE ESTERASE,URINE NEGATIVE (NEGATIVE); NITRITE,URINE NEGATIVE (NEGATIVE); PROTEIN,URINE NEGATIVE (NEGATIVE); URINE SPECIFIC GRAVITY 1.008; UROBILINOGEN,URINE NEGATIVE mg/dL (<2.0)
[2019-07-15] MEDS ORDERED: KETOROLAC TROMETHAMINE INJ/PF 30 MG/1 ML SDV IV ONE (23:30)
[2019-07-15] MEDS ORDERED: FAMOTIDINE INJ/PF 20 MG/2 ML SDV IV ONE (23:31)
[2019-07-15] MEDS ORDERED: SUCRALFATE 1 GM TABLET PO ONE (23:36)
--- NOTE | 2019-07-15 23:47 | RADIOLOGY REPORT (SQ) ---
EXAM DESCRIPTION: US ABDOMEN LIMITED COMPLETED DATE/TME: 07/15/2019 22:30 CLINICAL HISTORY: 29 years, Female, ruq pain COMPARISON: None. TECHNIQUE: Axial 2-D grayscale images of the abdomen were acquired. Doppler is utilized. LIMITATIONS: None. FINDINGS: Visualized portions of the pancreas appear normal. Visualized portions of the abdominal aorta measures follows: Proximal: 1.6 cm Mid: 1.2 cm Distal: 0.6 cm Visualized portions of the liver appear normal in echogenicity, measuring up to 15.1 cm in length. Antegrade flow is documented within the main portal vein. Gallbladder wall thickness measures 3 mm. Gallstones are noted. Sonographic Kimbrough sign was positive. In addition, there is a small focus of comet tail artifact located about the gallbladder wall, either indicating focal adenomyomatosis or a small cholesterol polyp. No pericholecystic free fluid is identified. Right kidney measures 9.3 x 3.1 x 4.4 cm in size. No hydronephrosis. IMPRESSION: Mild gallbladder wall thickening with cholelithiasis and positive sonographic Kimbrough sign. Overall, findings could indicate cholecystitis. Small echogenic focus located about the gallbladder wall with associated comet tail artifact, either indicating a small cholesterol polyp or focal adenomyomatosis. copyright 2010 [employer]- All Rights Reserved
[2019-07-16 00:08] LABS: ABSOLUTE EOSINOPHILS # (AUTO) 0.9 10^3/uL (0.0-0.6); ABSOLUTE LYMPHOCYTES (AUTO) 3.4 10^3/uL (0.5-4.7); ABSOLUTE MONOCYTES (AUTO) 0.6 10^3/uL (0.1-1.4); ABSOLUTE NEUT (AUTO) 4.5 10^3/uL (1.7-8.2); BASOPHILS % (AUTO) 0.3 % (0-2); EOSINOPHILS % (AUTO) 9.1 % (0-6); HEMATOCRIT 39.4 % (36.0-47.0); HEMOGLOBIN 13.6 g/dL (12.0-15.5); LYMPHOCYTES % (AUTO) 36.3 % (13-45); MEAN CORPUSCULAR HEMOGLOBIN 29.6 pg (27.0-33.4); MEAN CORPUSCULAR HGB CONC 34.4 g/dL (32.0-36.0); MEAN CORPUSCULAR VOLUME 86 fl (80-97); PLATELET COUNT 288 10^3/uL (150-450); RED BLOOD COUNT 4.59 10^6/uL (3.72-5.28); RED CELL DISTRIBUTION WIDTH 15.7 % (11.5-14.0); SEGMENTED NEUTROPHILS % (AUTO) 48.3 % (42-78); TOTAL CELLS COUNTED % (AUTO) 100 %; WHITE BLOOD COUNT 9.4 10^3/uL (4.0-10.5)
[2019-07-16 00:26] LABS: ALBUMIN 4.2 g/dL (3.5-5.0); ALKALINE PHOSPHATASE 82 U/L (38-126); ANION GAP 8 (5-19); ASPARTATE AMINO TRANSFERASE 21 U/L (14-36); BILIRUBIN,TOTAL 0.9 mg/dL (0.2-1.3); BLOOD UREA NITROGEN 10 mg/dL (7-20); CALCIUM 9.5 mg/dL (8.4-10.2); CARBON DIOXIDE 25 mmol/L (22-30); CHLORIDE 105 mmol/L (98-107); GLUCOSE 88 mg/dL (75-110); POTASSIUM 4.5 mmol/L (3.6-5.0); TOTAL PROTEIN 6.8 g/dL (6.3-8.2)
[2019-07-16] MEDS ORDERED: OXYCODONE-ACETAMINOPHEN 5-325 MG TABLET PO ONE (00:49)
[2019-07-16 02:04] VITALS: BP 97/66
--- NOTE | 2019-07-16 02:06 | ER Document Report ---
ED GI/ - General Chief Complaint: Abdominal Pain Stated Complaint: ABDOMINAL PAIN Time Seen by Provider: 07/15/19 22:29 Primary Care Provider: JAKUB LOPEZ MD [ACTIVE STAFF] - Follow up as needed Notes: Patient is a 29-year-old female currently 7 weeks post section presents to the emergency department for upper abdominal pain. States she has generalized right, left, and epigastric upper abdominal pain. Patient is also complaining of generalized nausea. States patient did receive blood transfusion and iron transfusions secondary due to blood loss from her section. Patient voices that her had similar nausea and abdominal pain symptoms a few days ago. States she thought this was viral in nature but her pain and nausea has persisted which is why she presents to the emergency room. Patient's denying any dysuria or vaginal discharge. TRAVEL OUTSIDE OF THE [place] IN LAST 30 DAYS: No - Related Data Allergies/Adverse Reactions: Sulfa (Sulfonamide Antibiotics) Allergy (Verified 05/22/19 11:57) Past Medical History - General Information source: Patient - Social History Smoking Status: Never Smoker Family History: Reviewed & Not Pertinent Patient has suicidal ideation: No Patient has homicidal ideation: No GI Medical History: Reports: Hx Gastroesophageal Reflux Disease - with Review of Systems - Review of Systems Constitutional: denies: Fever EENT: No symptoms reported Cardiovascular: No symptoms reported Respiratory: No symptoms reported Gastrointestinal: See HPI Genitourinary: No symptoms reported Female Genitourinary: No symptoms reported Musculoskeletal: No symptoms reported Skin: No symptoms reported Hematologic/Lymphatic: No symptoms reported Neurological/Psychological: No symptoms reported Physical Exam - Vital signs Vitals: Temp Pulse Resp BP Pulse Ox 97.5 F 64 18 110/65 97 07/15/19 21:38 07/15/19 21:38 07/15/19 21:38 07/15/19 21:38 07/15/19 21:38 - Notes Notes: GENERAL: Alert, interacts well. HEAD: Normocephalic, atraumatic. EYES: Pupils equal, round, and reactive to light. Extraocular movements intact. ENT: Oral mucosa moist, tongue midline. NECK: Full range of motion. Supple. Trachea midline. LUNGS: Clear to auscultation bilaterally, no wheezes, rales, or rhonchi. No respiratory distress. HEART: Regular rate and rhythm. No murmur ABDOMEN: Soft, right upper quadrant abdominal pain noted, no right lower or left lower abdominal pain noted. Non-distended. Bowel sounds present in all 4 quadrants. EXTREMITIES: Moves all 4 extremities spontaneously. No edema, normal radial and dorsalis pedis pulses bilaterally. No cyanosis. BACK: no cervical, thoracic, lumbar midline tenderness. No saddle anesthesia, n ormal distal neurovascular exam. NEUROLOGICAL: Alert and oriented x3. Normal speech. cranial nerves II through XII grossly intact. PSYCH: Normal affect, normal mood. SKIN: Warm, dry, normal turgor. No rashes or lesions noted. Course - Re-evaluation Re-evalutation: 07/16/19 02:02 Laboratory 07/15/19 07/15/19 07/15/19 22:40 23:40 23:40 WBC 9.4 RBC 4.59 Hgb 13.6 Hct 39.4 MCV 86 MCH 29.6 MCHC 34.4 RDW 15.7 H Plt Count 288 Lymph % (Auto) 36.3 [place] % (Auto) 6.0 Eos % (Auto) 9.1 H Baso % (Auto) 0.3 Absolute Neuts (auto) 4.5 Absolute Lymphs (auto) 3.4 Absolute Monos (auto) 0.6 Absolute Eos (auto) 0.9 H Absolute Basos (auto) 0.0 Seg Neutrophils % 48.3 Sodium 138.0 Potassium 4.5 Chloride 105 Carbon Dioxide 25 Anion Gap 8 BUN 10 Creatinine 1.03 Est GFR ( Amer) > 60 Est GFR (MDRD) Non-Af > 60 Glucose 88 Calcium 9.5 Total Bilirubin 0.9 Direct Bilirubin 0.0 Neonat Total Bilirubin Not Reportable Neonat Direct Bilirubin Not Reportable Neonat Indirect Bili Not Reportable AST 21 ALT 15 Alkaline Phosphatase 82 Total Protein 6.8 Albumin 4.2 Lipase 120.8 Urine Color STRAW Urine Appearance CLEAR Urine pH 8.0 Ur Specific [place] 1.008 Urine Protein NEGATIVE Urine Glucose (UA) NEGATIVE Urine Ketones NEGATIVE Urine Blood NEGATIVE Urine Nitrite NEGATIVE Urine Bilirubin NEGATIVE Urine Urobilinogen NEGATIVE Ur Leukocyte Esterase NEGATIVE Urine WBC (Auto) 1 Urine RBC (Auto) 1 Urine Bacteria (Auto) TRACE Squamous Epi Cells Auto 1 Urine Mucus (Auto) RARE Urine Ascorbic Acid NEGATIVE Urine HCG, Qual NEGATIVE Abdomen Ultrasound 07/15/19 22:30 IMPRESSION: Mild gallbladder wall thickening with cholelithiasis and positive sonographic Kimbrough sign. Overall, findings could indicate cholecystitis. Small echogenic focus located about the gallbladder wall with associated comet tail artifact, either indicating a small cholesterol polyp or focal adenomyomatosis. copyright 2011 [employer]- All Rights Reserved I discussed patient's ultrasound results and presentation with my attending Dr. Peterson. He suggested giving the patient a p.o. trial with Percocet. If her pain is controlled she can be discharged with follow-up outpatient surgery. Patient has been given Percocet and has been able to drink without any further episodes of vomiting. Patient states her pain has been resolved. Discussed with her close follow-up with surgery with close return precautions discussed. At this time will discharge with return precautions and follow-up recommendations. Verbal discharge instructions given a the bedside and opportunity for questions given. Medication warnings reviewed. Patient is in agreement with this plan and has verbalized understanding of return precautions and the need for primary care follow-up in the next 24-72 hours. This medical record was dictated with voice recognizing software. There may be grammatical, syntax errors that are unintended. - Vital Signs Vital signs: Temp Pulse Resp BP Pulse Ox 98.6 F 68 16 97/66 L 100 07/16/19 02:03 07/16/19 02:03 07/16/19 02:03 07/16/19 02:03 07/16/19 02:03 - Laboratory Result Diagrams: 07/15/19 23:40 07/15/19 23:40 Laboratory results interpreted by me: 07/15/19 23:40 RDW 15.7 H Eos % (Auto) 9.1 H Absolute Eos (auto) 0.9 H Discharge - Discharge Clinical Impression: Cholelithiasis Qualifiers: Cholelithiasis location: other site Biliary obstruction: without biliary obstruction Qualified Code(s): K80.80 - Other cholelithiasis without obstruction Condition: Stable Disposition: HOME, SELF-CARE Instructions: Gallbladder Disease ([facility]) Additional Instructions: As we discussed you have been seen and treated in the emergency department for gallbladder stones. Please make sure you follow-up with outpatient surgery, phone numbers will be provided in this packet. Please also make sure you return to the emergency room should you have uncontrolled pain, uncontrolled vomiting, have a fever or have any other concerns. Prescriptions: Oxycodone HCl/Acetaminophen [Percocet 5-325 mg Tablet] 1 - 2 tab PO Q4H PRN #15 tablet PRN Reason: Metoclopramide HCl [Reglan 10 mg Tablet] 1 tab PO ASDIR PRN #14 tablet PRN Reason: Referrals: JAKUB LOPEZ MD [ACTIVE STAFF] - Follow up as needed
== END 2019-07-16 02:19 | disposition home or self-care (01) ==
LOC: ER 21:20
DX: O90.89 Other complications of the puerperium, not elsewhere classified (principal); K80.80 Other cholelithiasis without obstruction; R10.9 Unspecified abdominal pain; R10.13 Epigastric pain; R11.0 Nausea; R10.11 Right upper quadrant pain
CPT/HCPCS: 36415; 83690; 85025; 81025; 80053; 81001; 76705; J1885; J2765; 96374; 96375; 99284

== ENCOUNTER → 2019-07-30 | Outpatient (CLI) | payer OTHER ==
--- NOTE | 2019-07-30 14:24 | RADIOLOGY REPORT (SQ) ---
EXAM DESCRIPTION: CHEST 2 VIEWS COMPLETED DATE/TIME: 07/30/2019 1:32 pm REASON FOR STUDY: COUGH (R05) COMPARISON: 05/24/2019 EXAM PARAMETERS: NUMBER OF VIEWS: two views TECHNIQUE: Digital Frontal and Lateral radiographic views of the chest acquired. RADIATION DOSE: NA LIMITATIONS: none FINDINGS: LUNGS AND PLEURA: There is hazy opacification in the left base and posteriorly and inferio rly on the lateral view. MEDIASTINUM AND HILAR STRUCTURES: No masses or contour abnormalities. HEART AND VASCULAR STRUCTURES: Heart normal size. No evidence for failure. BONES: No acute findings. HARDWARE: None in the chest. OTHER: No other significant finding. IMPRESSION: Left lower lobe pneumonia. TECHNICAL DOCUMENTATION: JOB ID: [id number] [employer]- All Rights Reserved Reading location - IP/workstation name: [email or web address]
== END ==
LOC: RAD 12:52
PROVIDERS: ATTEND Physician Assistant
DX: R05 Cough (principal)
CPT/HCPCS: 71046

== ENCOUNTER 2019-12-14 21:14 | Emergency (ER) | payer OTHER ==
[2019-12-14] MEDS ORDERED: ONDANSETRON HCL INJ/PF 4 MG/2 ML SDV IM ONE (22:44)
[2019-12-14] MEDS ORDERED: NORMAL SALINE 1000 ML 1,000 ML IV ONE (22:45)
[2019-12-14] MEDS ORDERED: MORPHINE SULFATE 10 MG/ML INJ IV ONE (22:45)
--- NOTE | 2019-12-14 22:46 | ER Document Report ---
ED Medical Screen (RME) - General Chief Complaint: Abdominal Pain Stated Complaint: ABDOMINAL PAIN Time Seen by Provider: 12/14/19 22:37 Primary Care Provider: JOSE HIGH MD [Primary Care Provider] - Follow up as needed TRAVEL OUTSIDE OF THE [place] IN LAST 30 DAYS: No - HPI Notes: 12/14/19 22:45 29-year-old female to emergency department with complaints of right upper quadrant and epigastric abdominal pain that radiates through to her back that began about 7 or 8 PM tonight after eating a sub-sandwich. She states that she has a known history of gallbladder problems. She states that several months ago she had a gallbladder attack and she was referred to a surgeon but she never followed up. She states that she thinks she may have had another episode last week but thought it was food poisoning. She states that since eating this she has had extreme pain and nausea. She has not been vomiting. She denies any fevers. I performed a brief medical screening exam on the patient determined that the patient needs further evaluation and management by main side provider. I have placed initial orders to help expedite care. - Related Data Allergies/Adverse Reactions: Sulfa (Sulfonamide Antibiotics) Allergy (Verified 12/14/19 22:34) Home Medications: prozac, Past Medical History - Social History Chew tobacco use (# tins/day): No Frequency of alcohol use: Occasional Drug Abuse: None GI Medical History: Reports: Hx Gastroesophageal Reflux Disease - with Physical Exam - Vital signs Vitals: Temp Pulse Resp BP Pulse Ox 98.5 F 103 H 20 114/79 103 H 12/14/19 21:58 12/14/19 21:58 12/14/19 21:58 12/14/19 21:58 12/14/19 21:58 Course - Vital Signs Vital signs: Temp Pulse Resp BP Pulse Ox 98.5 F 103 H 20 114/79 103 H 12/14/19 21:58 12/14/19 21:58 12/14/19 21:58 12/14/19 21:58 12/14/19 21:58 Doctor's Discharge - Discharge Referrals: JOSE HIGH MD [Primary Care Provider] - Follow up as needed
[2019-12-14 23:06] LABS: ABSOLUTE BASOPHILS # (AUTO) 0.1 10^3/uL (0.0-0.2); ABSOLUTE EOSINOPHILS # (AUTO) 1.3 10^3/uL (0.0-0.6); ABSOLUTE LYMPHOCYTES (AUTO) 3.1 10^3/uL (0.5-4.7); ABSOLUTE MONOCYTES (AUTO) 0.6 10^3/uL (0.1-1.4); ABSOLUTE NEUT (AUTO) 4.8 10^3/uL (1.7-8.2); BASOPHILS % (AUTO) 0.6 % (0-2); EOSINOPHILS % (AUTO) 13.2 % (0-6); HEMOGLOBIN 13.8 g/dL (12.0-15.5); MEAN CORPUSCULAR HEMOGLOBIN 31.1 pg (27.0-33.4); MEAN CORPUSCULAR HGB CONC 35.3 g/dL (32.0-36.0); MEAN CORPUSCULAR VOLUME 88 fl (80-97); MONOCYTES % (AUTO) 5.9 % (3-13); PLATELET COUNT 252 10^3/uL (150-450); RED BLOOD COUNT 4.44 10^6/uL (3.72-5.28); RED CELL DISTRIBUTION WIDTH 12.6 % (11.5-14.0); SEGMENTED NEUTROPHILS % (AUTO) 49.3 % (42-78); TOTAL CELLS COUNTED % (AUTO) 100 %; WHITE BLOOD COUNT 9.8 10^3/uL (4.0-10.5)
[2019-12-14 23:26] LABS: ALBUMIN 4.2 g/dL (3.5-5.0); ALKALINE PHOSPHATASE 77 U/L (38-126); ANION GAP 7 (5-19); ASPARTATE AMINO TRANSFERASE 21 U/L (14-36); BILIRUBIN,DIRECT 0.1 mg/dL (0.0-0.4); BILIRUBIN,TOTAL 1.2 mg/dL (0.2-1.3); BLOOD UREA NITROGEN 15 mg/dL (7-20); CALCIUM 9.5 mg/dL (8.4-10.2); CARBON DIOXIDE 28 mmol/L (22-30); CHLORIDE 107 mmol/L (98-107); GLUCOSE 86 mg/dL (75-110); POTASSIUM 3.9 mmol/L (3.6-5.0)
--- NOTE | 2019-12-14 23:46 | RADIOLOGY REPORT (SQ) ---
Ultrasound of the right upper quadrant of the abdomen: 12/14/2019 10:44 PM PROGRAMMING EQUIPMENT OPERATOR Technique: Multiple grayscale color Doppler images of the right upper quadrant of the abdomen were obtained. Comparison: None available History: 29-year old patient with right upper quadrant abdominal pain. Findings: The visualized portions of the hepatic parenchyma appear normal. There is no evidence to suggest intra or extrahepatic ductal dilatation. There is normal directional flow seen within the main portal vein. There is no evidence of pericholecystic fluid, gallbladder wall thickening, or cholelithiasis. The common duct measures 2.0 mm. The right kidney measures up to 11.7 cm in length. The right kidney demonstrates normal cortical echogenicity with no evidence to suggest hydronephrosis. The visualized portions of the IVC, abdominal aorta, and pancreatic head appear normal. No free intraperitoneal fluid is seen. Impression: No sonographic abnormality is seen within the right upper quadrant of the abdomen.
[2019-12-15] MEDS ORDERED: MORPHINE SULFATE 10 MG/ML INJ IV ONE ×2 (02:00→03:40)
[2019-12-15] MEDS ORDERED: ONDANSETRON HCL INJ/PF 4 MG/2 ML SDV IM ONE (02:00)
[2019-12-15] MEDS ORDERED: KETOROLAC TROMETHAMINE INJ/PF 30 MG/1 ML SDV IV ONE (03:39)
[2019-12-15] MEDS ORDERED: ONDANSETRON HCL INJ/PF 4 MG/2 ML SDV IV ONE (03:40)
--- NOTE | 2019-12-15 03:46 | ER Document Report ---
ED GI/ - General Chief Complaint: Abdominal Pain Stated Complaint: ABDOMINAL PAIN Time Seen by Provider: 12/14/19 22:37 Primary Care Provider: JOSE HIGH MD [Primary Care Provider] - Follow up as needed Notes: Patient is a 29-year-old female that comes to the emergency department for chief complaint of right upper quadrant pain radiating around to her back on the right side. She states this began at about 8 PM tonight after eating a sub-sandwich with banana peppers. She states that she has had pain that is similar in the past and she was told it was her gallbladder. She states she was given a surgical referral but has not followed up because she is hoping she will not need surgery. She states earlier in the week she had a similar episode and threw up at that time but denies vomiting with this episode. She reports normal bowel movements, denies fever, denies lower abdominal pain, denies history of kidney stones. She has had an appendectomy and . She is treated for anxiety/depression. She denies medical history otherwise. TRAVEL OUTSIDE OF THE [place] IN LAST 30 DAYS: No - Related Data Allergies/Adverse Reactions: Sulfa (Sulfonamide Antibiotics) Allergy (Verified 12/14/19 22:34) Home Medications: prozac, Past Medical History - General Information source: Patient - Social History Smoking Status: Former Smoker Chew tobacco use (# tins/day): No Frequency of alcohol use: Occasional Drug Abuse: None Lives with: Family Family History: Reviewed & Not Pertinent Patient has suicidal ideation: No Patient has homicidal ideation: No GI Medical History: Reports: Hx Gastroesophageal Reflux Disease - with - Immunizations Immunizations up to date: Yes Hx Diphtheria, Pertussis, Tetanus Vaccination: Yes Review of Systems - Review of Systems Constitutional: No symptoms reported EENT: No symptoms reported Cardiovascular: No symptoms reported Respiratory: No symptoms reported Gastrointestinal: See HPI Genitourinary: No symptoms reported Female Genitourinary: No symptoms reported Musculoskeletal: No symptoms reported Skin: No symptoms reported Hematologic/Lymphatic: No symptoms reported Neurological/Psychological: No symptoms reported Physical Exam - Vital signs Vitals: Temp Pulse Resp BP Pulse Ox 98.5 F 103 H 20 114/79 103 H 12/14/19 21:58 12/14/19 21:58 12/14/19 21:58 12/14/19 21:58 12/14/19 21:58 - Notes Notes: GENERAL: Alert, interacts well, appears uncomfortable HEAD: Normocephalic, atraumatic. EYES: Pupils equal, round, and reactive to light. Extraocular movements intact. ENT: Oral mucosa moist, tongue midline. Oropharynx unremarkable. Airway patent. LUNGS: Clear to auscultation bilaterally, no wheezes, rales, or rhonchi. No respiratory distress. HEART: Regular rate and rhythm. No murmur ABDOMEN: There is tenderness in the right upper quadrant only with wincing. Remaining abdomen is completely benign. EXTREMITIES: Moves all 4 extremities spontaneously. No edema, normal radial and dorsalis pedis pulses bilaterally. No cyanosis. BACK: No CVA tenderness. No cervical, thoracic, lumbar midline tenderness. No saddle anesthesia, normal distal neurovascular exam. Moves all extremities in full range of motion. NEUROLOGICAL: Alert and oriented x3. Normal speech. Cranial nerves II through XII grossly intact. PSYCH: Normal affect, normal mood. SKIN: Warm, dry, normal turgor. No rashes or lesions noted. Course - Re-evaluation Re-evalutation: Patient does have right upper quadrant pain and still appears uncomfortable on my initial evaluation despite medications from triage. CBC, chemistry unremarkable, lipase unremarkable, urinalysis pending. On evaluation patient was medicated again and she is much improved, symptoms resolved, she tolerated p.o. without any difficulty. Right upper quadrant ultrasound is normal. Urinalysis does indicate infection. I discussed with patient. Infection seems nonspecific, she has no CVA tenderness, no urinary symptoms, no lower abdominal pain, no fever. Symptoms are reproducible with eating and have been recurrent with eating every time. Patient also had specific right upper quadrant pain which resolved especially after Toradol. I believe her overall presentation is consistent with gallbladder dyskinesis, she will also be treated for her urinary tract infection, discussed details, follow- up, return precautions. Patient states appreciation and agreement. Stable and well-appearing at time of discharge. - Vital Signs Vital signs: Temp Pulse Resp BP Pulse Ox 98.6 F 67 18 104/71 100 12/15/19 05:36 12/15/19 01:05 12/15/19 01:05 12/15/19 05:01 12/15/19 05:01 - Laboratory Result Diagrams: 12/14/19 22:55 12/14/19 22:55 Laboratory results interpreted by me: 12/14/19 12/15/19 22:55 03:15 Eos % (Auto) 13.2 H Absolute Eos (auto) 1.3 H Urine Blood MODERATE H Ur Leukocyte Esterase LARGE H Discharge - Discharge Clinical Impression: RUQ abdominal pain Condition: Stable Disposition: HOME, SELF-CARE Additional Instructions: Your ultrasound and lab work do not show any concerning findings. Your urinalysis does indicate infection. Take antibiotics as prescribed. Your symptoms and response to treatment are very suggestive of gallbladder dyskinesis. I recommend you call your primary care provider and get a HIDA scan performed. You can take the Toradol if needed for pain, you can take the Zofran if needed for nausea, I recommend a very bland diet to avoid repeat symptoms. Return if you worsen including uncontrolled vomiting, severe worsening pain, fever, or any other concerning symptoms. Prescriptions: Ketorolac Tromethamine [Toradol 10 mg Tablet] 10 mg PO Q8HP PRN #24 tablet PRN Reason: Cephalexin Monohydrate [Keflex 500 mg Capsule] 500 mg PO BID 7 Days #14 capsule Ondansetron [Zofran Odt 4 mg Tablet] 1 - 2 tab PO Q4H PRN #15 tab.rapdis PRN Reason: For Nausea/Vomiting Referrals: JOSE HIGH MD [Primary Care Provider] - Follow up as needed
[2019-12-15 03:50] LABS: APPEARANCE,URINE CLOUDY; BILIRUBIN,URINE NEGATIVE (NEGATIVE); COLOR,URINE YELLOW; GLUCOSE, URINE NEGATIVE (NEGATIVE); KETONES,URINE NEGATIVE (NEGATIVE); LEUKOCYTE ESTERASE,URINE LARGE (NEGATIVE); NITRITE,URINE NEGATIVE (NEGATIVE); PROTEIN,URINE NEGATIVE (NEGATIVE); URINE SPECIFIC GRAVITY 1.023; UROBILINOGEN,URINE NEGATIVE mg/dL (<2.0)
[2019-12-15 05:36] VITALS: BP 104/71
== END 2019-12-15 05:29 | disposition home or self-care (01) ==
LOC: ER 21:14
DX: R10.11 Right upper quadrant pain (principal); Z88.2 Allergy status to sulfonamides; Z79.899 Other long term (current) drug therapy; Z87.891 Personal history of nicotine dependence
CPT/HCPCS: 96376; 99284; 96372; 96361; 96374; 96375; 36415; 87086; 83690; 84703; 85025; 87088; 80053; 81001; 76705; J1885; J2270; J2405; J7030